=== PATIENT | male | born 1950 | race Two or more races ===

== ENCOUNTER 2024-10-22 05:25 | Day surgery (SDC) | payer OTHER ==
[2024-10-14 10:08] VITALS: BP 146/78
[~2024-10-22] VITALS: Ht 188 cm; Wt 88.5 kg
[~2024-10-22 05:25] MED LIST: LIPITOR20 MG PO; NORVASC5 MG PO; SYNTHROID125 MCG PO; TAMS0.4C PO
[2024-10-22] MEDS ORDERED: LIDOCAINE HCL 1%/EPINEPHRINE 20ML VIAL IJ SCH (07:45)
[2024-10-22] MEDS ORDERED: CEFTRIAXONE SODIUM 2,000 MG VIAL IV ONE (07:45)
[2024-10-22] MEDS ORDERED: METRONIDAZOLE/SODIUM CHLORIDE 500 MG/100 ML PIGGYBACK IV ONE (07:45)
[2024-10-22] MEDS ORDERED: BUPIVACAINE HCL 30 ML VIAL IJ ONE (07:45)
[2024-10-22] MEDS ORDERED: HEMOSTATIC MATRIX 1 KIT KIT TOP SCH (07:45)
[2024-10-22] MEDS ORDERED: DIBUCAINE 30 GM TUBE RECTAL ONE (07:45)
[2024-10-22] MEDS ORDERED: POVIDONE-IODINE 118 ML BOTT TOP ONE (07:45)
[2024-10-22] MEDS ORDERED: MORPHINE SULFATE 4 MG/ML VIAL IV ONE ×2 (12:00→12:40)
[2024-10-22] MEDS ORDERED: TAMSULOSIN HCL 0.4 MG CAP PO ONE (12:30)
[2024-10-22] MEDS ORDERED: OXYCODONE HCL5 MG PO (12:38)
== END 2024-10-22 14:40 | disposition home or self-care (01) ==
LOC: CIR.AMB 05:25
PROVIDERS: ATTEND Surgery
DX: K64.2 Third degree hemorrhoids (principal); K64.4 Residual hemorrhoidal skin tags; K62.5 Hemorrhage of anus and rectum